=== PATIENT | female | born 1965 | race Caucasian/White ===

== ENCOUNTER 2017-11-20 14:13 | Emergency (ER) | payer BC ==
--- NOTE | 2017-11-20 15:17 | C.PDOC ---
History Of Present Illness 52yo female, comes to ER for evaluation of abdominal pain, back pain and bloody stools x 5 days. Patient states she was initially seen at [facility] for these problems, was given an "injection and pain medication" and discharged home; she denies having any CT studies at that time. She states the pain was persistent so she visited her PMD Dr. Kolby Mosqueda who placed her on Flagyl which she has been taking with minimal relief. She reports the blood per rectum has been improving mildly but is still present, prompting her visit. Patient also reports associated nausea. Otherwise, she denies any fever, chills , chest pain, shortness of breath, vomiting, vaginal bleeding or discharge. Time Seen by Provider: 11/20/17 15:17 Chief Complaint (Nursing): Abdominal Pain History Per: Patient History/Exam Limitations: no limitations Onset/Duration Of Symptoms: Days Current Symptoms Are (Timing): Still Present Location Of Pain/Discomfort: RLQ, Epigastric, LLQ, Suprapubic Quality Of Discomfort: "Pain", Gas Associated Symptoms: Nausea, Back Pain. denies: Fever, Chills, Vomiting, Diarrhea, Loss Of Appetite, Chest Pain, Urinary Symptoms Additional History Per: Patient Abnormal Vaginal Bleeding: No Past Medical History Reviewed: Historical Data, Nursing Documentation, Vital Signs Vital Signs: Last Vital Signs Temp 98 F 11/20/17 19:38 Pulse 78 11/20/17 19:38 Resp 18 11/20/17 19:38 BP 136/72 11/20/17 19:38 Pulse Ox 98 11/20/17 19:38 - Medical History PMH: No Chronic Diseases Other Surgeries: obstetric surgery Family History: States: No Known Family Hx - Social History Hx Tobacco Use: No Hx Alcohol Use: No Hx Substance Use: No - Immunization History Hx Tetanus Toxoid Vaccination: Yes Hx Influenza Vaccination: Yes Hx Pneumococcal Vaccination: Yes Review Of Systems Except As Marked, All Systems Reviewed And Found Negative. Constitutional: Negative for: Fever, Chills Cardiovascular: Negative for: Chest Pain Respiratory: Negative for: Shortness of Breath Gastrointestinal: Positive for: Nausea, Abdominal Pain, Other (blood per rectum) . Negative for: Vomiting, Diarrhea Genitourinary: Negative for: Dysuria, Frequency, Hematuria, Vaginal Discharge, Vaginal Bleeding Musculoskeletal: Positive for: Back Pain Physical Exam - Physical Exam Appears: Non-toxic, No Acute Distress Skin: Normal Color, Warm, Dry Head: Atraumatic, Normacephalic Eye(s): bilateral: Normal Inspection Neck: Normal ROM, Supple Chest: Symmetrical Cardiovascular: Rhythm Regular Respiratory: Normal Breath Sounds Gastrointestinal/Abdominal: Soft, Tenderness (epigastric, suprapubic and bilateral lower quadrants), No Mass, No Guarding, No Rebound Rectal: Normal Exam, No Blood Streaked Stool, No Hemorrhoids, No Mass, No Tenderness Back: Normal Inspection, No CVA Tenderness Neurological/Psych: Oriented x3 ED Course And Treatment - Laboratory Results Result Diagrams: 11/20/17 16:16 11/20/17 16:16 ECG: Interpreted By Me, Viewed By Me ECG Rhythm: Sinus Rhythm ECG Interpretation: Normal Interpretation Of ECG: no STEMI Rate From EC O2 Sat by Pulse Oximetry: 98 (RA) Pulse Ox Interpretation: Normal Medical Decision Making Medical Decision Makin yr old female p/w abdominal pain. Pt was recently seen by PMD 1919: labs and imaging resulted: UTI, will rx, w/ ?mass seen in CT?, informed pt. will have pt follow up w/ pmd and GI Disposition - Disposition Referrals: [facility] [Outside] Jef Robins MD [Staff Provider] - Disposition: HOME/ ROUTINE Disposition Time: 19:19 Condition: GOOD Additional Instructions: SEE YOUR GI DOCTOR AND GET A SCOPE FOR THE CT FINDINGS OF a collapsed colon [facility], thank you for letting us take care of you today. Your provider was Cheikh Osborn and you were treated for STOMACH PAIN. The emergency medical care you received today was directed at your acute symptoms. If you were prescribed any medication, please fill it and take as directed. It may take several days for your symptoms to resolve. Return to the Emergency Department if your symptoms worsen, do not improve, or if you have any other problems. Please contact your doctor or call one of the physicians/clinics you have been referred to that are listed on the Patient Visit Information form that is included in your discharge packet. Bring any paperwork you were given at discharge with you along with any medications you are taking to your follow up visit. Our treatment cannot replace ongoing medical care by a primary care provider outside of the emergency department. Thank you for allowing the [facility] team to be part of your care today. If you had an X-Ray or CT scan: A Radiologist will review the ED reading if any change in treatment is needed we will contact you. If you had a blood, urine, or wound culture: It will take several days for the results, if any change in treatment is needed we will contact you. If you had an STI test: It will take 48 hours for the results. Please call after 1 week if you have not heard back. Prescriptions: Ciprofloxacin [Cipro] 250 mg PO BID 3 Days #6 tab Instructions: Urinary Tract Infections in Adults, Acute Abdomen (Belly Pain), Adult (DC), Viral Gastroenteritis, Adult (DC) Forms: [employer] (Mosotho) - Clinical Impression Clinical Impression: UTI (urinary tract infection), Gastroenteritis, Abdominal pain, Diarrhea - Scribe Statement The provider has reviewed the documentation as recorded by the Dawn Cavanaugh Provider Attestation: All medical record entries made by the Dawn were at my direction and personally dictated by me. I have reviewed the chart and agree that the record accurately reflects my personal performance of the history, physical exam, medical decision making, and the department course for this patient. I have also personally directed, reviewed, and agree with the discharge instructions and disposition.
[2017-11-20 16:19] LABS: BASO % 0.3 % (0.0-2.0); EOS # 0.4 K/uL (0.0-0.7); EOS % 3.7 % (0.0-4.0); LYMPH # 2.1 K/uL (1.0-4.3); LYMPH % 20.3 % (20.0-40.0); MEAN CELL VOLUME 83.6 fL (81.0-99.0); MEAN CORPUSCULAR HEMOGLOBIN 27.5 pg (27.0-31.0); MEAN CORPUSCULAR HGB CONC 32.8 g/dL (33.0-37.0); MEAN PLATELET VOLUME 7.6 fL (7.2-11.7); MONO % 9.3 % (0.0-10.0); NEUT # 6.9 K/uL (1.8-7.0); NEUT % 66.4 % (50.0-75.0); NRBC % 0.1 % (0.0-2.0); RBC 4.75 Mil/uL (3.80-5.20); RED CELL DISTRIBUTION WIDTH 13.8 % (11.5-14.5); WHITE BLOOD COUNT 10.3 K/uL (4.8-10.8)
[2017-11-20 16:32] LABS: ALB/GLOB RATIO 1.4 (1.0-2.1); ALBUMIN 4.2 g/dL (3.5-5.0); ALT/SGPT 35 U/L (9-52); AST/SGOT 18 U/L (14-36); BLOOD UREA NITROGEN 9 mg/dL (7-17); GFR NON-AFRICAN AMERICAN > 60; LIPASE 65 U/L (23-300)
[2017-11-20 16:40] LABS: VENOUS BLOOD GAS BASE EXCESS 2.5 mmol/L (0.0-2.0); VENOUS BLOOD GAS PCO2 48 mmHg (40-60); VENOUS BLOOD GAS PO2 22 mm/Hg (30-55); VENOUS BLOOD PH 7.38 (7.32-7.43)
[2017-11-20] MEDS ORDERED: Iohexol 300 100 ML IJ ONE (17:31)
[2017-11-20 18:15] LABS: SQUAMOUS EPITHIAL 8 /hpf (0-5); URINE BACTERIA OCC (<OCC); URINE BILIRUBIN NEGATIVE (NEGATIVE); URINE BLOOD 1+ (NEGATIVE); URINE CLARITY Clear (Clear); URINE COLOR Yellow (YELLOW); URINE GLUCOSE (UA) NORMAL (Normal); URINE LEUKOCYTE ESTERASE 1+ Leu/uL (Negative); URINE PROTEIN NEGATIVE (NEGATIVE); URINE UROBILINOGEN NORMAL mg/dL (0.2-1.0)
--- NOTE | 2017-11-20 19:15 | CT ---
Date of service: 11/20/2017 PROCEDURE: CT Abdomen and Pelvis with contrast HISTORY: epigastric, rlq pain COMPARISON: None. TECHNIQUE: Following the intravenous administration of iodinated contrast material, a CT examination of the abdomen and pelvis performed from the domes of the diaphragms to the symphysis pubis with reformatted datasets provided in axial, sagittal and coronal planes. Oral contrast was not administered as per referring physician request. Contrast dose: Omnipaque 300, 100 cc Radiation dose: Total exam DLP = 503.71 mGy-cm. This CT exam was performed using one or more of the following dose reduction techniques: Automated exposure control, adjustment of the mA and/or kV according to patient size, and/or use of iterative reconstruction technique. FINDINGS: LOWER THORAX: UnremarkableThere is a 4.3 mm nodule the right lower lobe in image 24 series 3 medially posterior to the right hemidiaphragm with lung bases otherwise unremarkable. Follow-up chest is advised in 6-12 months depending on risk factors of the patient developing lung cancer. LIVER: Diffuse hepatic steatosis identified without focal mass or intrahepatic biliary dilatation appreciated. GALLBLADDER AND BILE DUCTS: Unremarkable. PANCREAS: Unremarkable. No gross lesion or ductal dilatation. SPLEEN: Unremarkable. ADRENALS: Unremarkable. No mass. KIDNEYS AND URETERS: Unremarkable. No hydronephrosis. No solid mass. VASCULATURE: Unremarkable. No aortic aneurysm. BOWEL: Stomach is collapsed. Evaluation of the gastrointestinal tract is limited due the lack of oral contrast administration. No bowel obstruction identified. There is thickening of the sigmoid colon with diverticula which may be a chronic finding. This segment the colon is collapsed and poorly evaluated. No definite pericolic reaction. Acute diverticulitis is not felt to present, however, follow-up endoscopy is recommended given this thickened segment exclude potential underlying neoplasm. APPENDIX: Normal appendix. PERITONEUM: Unremarkable. No free fluid. No free air. LYMPH NODES: Unremarkable. No enlarged lymph nodes. BLADDER: Unremarkable. REPRODUCTIVE: Unremarkable. BONES: No acute fracture. OTHER FINDINGS: None. IMPRESSION: Thickened sigmoid colon is partially collapsed with diverticula. No pericolic reaction, abscess, ascites or free intra peritoneal gas. Diverticulitis is not definitively shown. Follow-up lower endoscopy is advised to exclude potential underlying lesion here. Normal appendix. Hepatic steatosis.
[2017-11-20 19:22] VITALS: O2SAT 98
[2017-11-20 19:39] VITALS: BP 136/72; PULSE 78; RESP 18; TEMP 98
--- NOTE | 2017-11-21 17:10 | CARD ---
APPROVED REPORT Date of service: 11/20/2017 EKG Measurement Heart [id number] VT 144P3 [id number] <Conclusion> Normal sinus rhythm with sinus arrhythmia Nonspecific T wave abnormality Abnormal ECG
== END 2017-11-20 19:38 | disposition home or self-care (01) ==
LOC: C.ER 14:13
DX: K52.9 Noninfective gastroenteritis and colitis, unspecified (principal); N39.0 Urinary tract infection, site not specified; R10.9 Unspecified abdominal pain; R19.7 Diarrhea, unspecified
CPT/HCPCS: 74177; 80053; 81001; 82803; 83690; 85025; 93005; 99285; G0328; Q9967